=== PATIENT | male | born 1940 ===

== ENCOUNTER 2017-02-27 10:31 | Observation (INO) | payer MEDICARE ==
[2017-02-27] MEDS ORDERED: Iodixanol 320 MG/ML 100 ML BOTTLE IV ONE (11:49)
[2017-02-27] MEDS ORDERED: Midazolam 2 MG/2 ML VIAL ONE (11:50)
[2017-02-27 14:27] LABS: BASO % 0.3 % (0.0-2.0); EOS # 0.6 K/uL (0.0-0.7); EOS % 7.1 % (0.0-4.0); LYMPH # 1.4 K/uL (1.0-4.3); LYMPH % 16.7 % (20.0-40.0); MEAN CELL VOLUME 100.4 fL (80.0-94.0); MEAN CORPUSCULAR HEMOGLOBIN 32.6 pg (27.0-31.0); MEAN CORPUSCULAR HGB CONC 32.4 g/dL (33.0-37.0); MEAN PLATELET VOLUME 8.4 fL (7.2-11.7); MONO # 0.7 K/uL (0.0-0.8); MONO % 8.6 % (0.0-10.0); NEUT # 5.6 K/uL (1.8-7.0); NEUT % 67.3 % (50.0-75.0); RBC 2.76 Mil/uL (4.40-5.90); RED CELL DISTRIBUTION WIDTH 16.1 % (11.5-14.5); WHITE BLOOD COUNT 8.3 K/uL (4.8-10.8)
[2017-02-27 14:48] LABS: CALCIUM 8.4 mg/dl (8.6-10.4)
[2017-02-27 16:35] LABS: INR 1.1; PROTHROMBIN TIME 12.3 SECONDS (9.7-12.2)
--- NOTE | 2017-02-27 23:04 | CP.PCM.HP ---
History of Present Illness - History of Present Illness History of Present Illness: 77 years old H/M with h/o chest pain , s/p cardiac cath. He is being admitted for hemodialysis. Past Patient History - Past Medical History & Family History Past Medical History?: Yes - Past Social History Smoking Status: Never Smoked - RENAL Hx Dialysis: Yes Type of Dialysis Access: right chest perma cath Date of Last Dialysis Treatment: 02/27/17 - MUSCULOSKELETAL/RHEUMATOLOGICAL Hx Falls: No - PSYCHIATRIC Hx Substance Use: No - ANESTHESIA Hx Anesthesia: Yes Hx Anesthesia Reactions: No Meds Allergies/Adverse Reactions: Allergies Allergy/AdvReac Type Severity Reaction Status Date / Time No Known Allergies Allergy Verified 02/27/17 12:59 Physical Exam - Head Exam Head Exam: ATRAUMATIC, NORMOCEPHALIC - Eye Exam Eye Exam: Normal appearance, PERRL - ENT Exam ENT Exam: Mucous Membranes Moist - Neck Exam Neck exam: Positive for: Full Rom - Respiratory Exam Respiratory Exam: Clear to Auscultation Bilateral, NORMAL BREATHING PATTERN - Cardiovascular Exam Cardiovascular Exam: REGULAR RHYTHM - Extremities Exam Extremities exam: Positive for: full ROM - Back Exam Back exam: NORMAL INSPECTION - Neurological Exam Neurological exam: Normal Gait Results - Vital Signs Recent Vital Signs: Last Vital Signs Temp 97.8 F 02/27/17 17:30 Pulse 74 02/27/17 17:30 Resp 18 02/27/17 17:30 BP 128/86 02/27/17 17:30 Pulse Ox 100 02/27/17 17:30 - Labs Result Diagrams: 02/27/17 14:14 02/27/17 14:14 Labs: Laboratory Results - last 24 hr 02/27/17 02/27/17 02/27/17 14:14 14:14 16:23 WBC 8.3 RBC 2.76 L Hgb 9.0 L Hct 27.7 L MCV 100.4 H MCH 32.6 H MCHC 32.4 L RDW 16.1 H Plt Count 205 MPV 8.4 Neut % (Auto) 67.3 Lymph % (Auto) 16.7 L [place] % (Auto) 8.6 Eos % (Auto) 7.1 H Baso % (Auto) 0.3 Neut # 5.6 Lymph # 1.4 [place] # 0.7 Eos # 0.6 Baso # 0.0 PT 12.3 H INR 1.1 APTT 35 H Sodium 136 Potassium 5.2 Chloride 97 L Carbon Dioxide 20 L Anion Gap 24 H BUN 102 H* Creatinine 13.3 H* Est GFR ( Amer) 4 Est GFR (Non-Af Amer) 4 Random Glucose 80 Calcium 8.4 L Assessment & Plan - Assessment and Plan (Free Text) Assessment: CAD , s/p cardiac cathetarization. ESRD on Hd HTN Plan: Nephrology consultfor HD. Follow cardiology recommendations.
--- NOTE | 2017-02-28 11:42 | CP.PCM.PN ---
Subjective - Date & Time of Evaluation Date of Evaluation: 02/28/17 Time of Evaluation: 11:42 - Subjective Subjective: Alert, orientedx3, no sob or chest pains, NAD. Objective - Vital Signs/Intake and Output Vital Signs (last 24 hours): Temp Pulse Resp BP Pulse Ox 97.5 F L 72 18 124/79 99 02/28/17 08:57 02/28/17 08:57 02/28/17 08:57 02/28/17 08:57 02/28/17 08:57 Intake and Output: 02/28/17 02/28/17 06:59 18:59 Intake Total 0 Balance 0 - Medications Medications: Current Medications Aspirin (Aspirin Chewable) 81 mg PO DAILY [facility] Last Admin: 02/28/17 10:21 Dose: 81 mg Heparin Sodium (Porcine) (Heparin) 5,000 units SC Q12 [facility] Last Admin: 02/28/17 10:21 Dose: 5,000 units - Labs Labs: 02/27/17 14:14 02/27/17 14:14 PT 12.3 SECONDS (9.7-12.2) H 02/27/17 16:23 INR 1.1 02/27/17 16:23 APTT 35 SECONDS (21-34) H 02/27/17 16:23 Assessment and Plan - Assessment and Plan (Free Text) Assessment: Patient is seen and examined, no sob or chest pains. S/P cardiac cath yesterday , right groin site intact, no hematoma. D/W DR Boyle, plan to discharge home today on eliquis 2.5mg po bid . Advised to follow up with PMD in 1 week.
[2017-02-28 12:23] VITALS: BP 140/90; PULSE 83; RESP 20; TEMP 98.1; O2SAT 100
--- NOTE | 2017-03-09 02:37 | CARDCATH ---
The patient is 77-year-old male from [facility], has a history of hypertension, end-stage renal disease, on hemodialysis, history of atrial fibrillation, and congestive heart failure, was electively admitted today for cardiac catheterization to rule out underlying ischemic cardiomyopathy. The procedure and its risks were explained to the patient, who understood and agreed for the procedure. PROCEDURES: Left heart cholangiography was performed with 6-inch JL4 and JR4 diagnostic catheter. Left angiogram and aortogram were performed with a 6-inch pigtail catheter. The patient tolerated the procedure well without any complications. ANGIOGRAPHIC FINDINGS: Selective injection of left coronary artery revealed left main to be a normal vessel, left main trifurcated into medium size LAD, medium size ramus and medium size circumflex artery. Other than 50% narrowing in the mid to distal LAD, the rest of the left coronary system was angiographically unremarkable. Selective injection of right coronary artery revealed a large caliber ectatic vessel that has sluggish flow, but no significant disease. Left ventriculogram performed in OSEI projection revealed inferobasal akinesis. Overall, ejection fraction is at 35%. aortography performed in RADHA projection revealed normal aortic root size. There is no aortic insufficiency or dissection. CONCLUSION: 1. Cardiomyopathy, most likely hypertensive. 2. 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 No intervention is indicated. 3. End-stage renal disease on hemodialysis. 4. Chronic atrial fibrillation. CONDITION: Continue current medical management including beta manuela, afterload reducing agents as well as anticoagulation. The patient will follow with his primary physician Dr. Gonzalez. I did discuss the findings with Dr. Gonzalez as the patient could not afford to buy Eliquis and to substitute Coumadin for Eliquis as a manager terminal management if the patient follows up with his primary care physician in [facility], whom which the patient is planning to travel within 2 days. Rosendo Mattson MD
== END 2017-02-28 12:36 | disposition home or self-care (01) ==
LOC: C.CATHLAB 10:31 → C.9S 13:04 → C.6T 15:12
PROVIDERS: ADMIT Internal Medicine; ATTEND Internal Medicine
DX: I25.10 Atherosclerotic heart disease of native coronary artery without angina pectoris (principal); Z99.2 Dependence on renal dialysis; N18.6 End stage renal disease; I12.0 Hypertensive chronic kidney disease with stage 5 chronic kidney disease or end stage renal disease
CPT/HCPCS: 36415; 80048; 85025; 85610; 85730; 93458; 94770; 96372; 97116; 97162; C1758; C1760; C1769; C1887; G0257; G0378; G8978; G8979; J1644; J2250; Q9967